=== PATIENT | female | born 1930 | race Caucasian/White ===

== ENCOUNTER 2016-07-08 20:02 | Inpatient (IN) | payer OTHER ==
[~2016-07-08] VITALS: Ht 165.1 cm; Wt 62.0 kg
[2016-07-08] MEDS: SODIUM CHLORIDE 0.9% 1,000 ML IV SCH (21:45)
[2016-07-08] MEDS ORDERED: MORPHINE SULF INJ 2 MG/ML SYRINGE 1ML IV PRN (21:45)
[2016-07-08] MEDS ORDERED: ONDANSETRON HCL 4 MG/2 ML VIAL IV PRN (21:45)
[2016-07-08] MEDS ORDERED: NITROGLYCERIN 0.4 MG SL TAB SL PRN (21:45)
[2016-07-08] MEDS: METOPROLOL TARTRATE 25 MG TAB PO SCH (22:00)
[2016-07-08] MEDS ORDERED: GABAPENTIN 300 MG CAP PO SCH (22:00)
[2016-07-08 22:27] VITALS: BP 133/62
[2016-07-08 22:27] LABS: INR 1.07 (0.9-1.15); Partial Thromboplastin Time 28.7 sec (22.64-33.71)
[2016-07-08] MEDS: ATORVASTATIN 20 MG TAB PO SCH (23:03)
[2016-07-08] MEDS: MORPHINE SULF INJ 2 MG/ML SYRINGE 1ML IV PRN (23:03)
[2016-07-08] MEDS: ENOXAPARIN SOD 30 MG/0.3 ML SYRINGE SC SCH (23:06)
[2016-07-09 05:11] VITALS: BP 121/64
[2016-07-09 06:04] LABS: Basophils # (auto) 0.1 uL; Basophils % (auto) 0.9 % (0.0-2.0); DEFINITIVE VIEW TRANSMISSION; Eosinophils # (auto) 0.9 uL; Eosinophils % (auto) 8.7 % (0.0-7.0); Hematocrit 23.9 % (36.0-46.0); Hemoglobin 7.4 g/dL (12.2-16.2); Lymphocytes # (auto) 1.8 uL; Lymphocytes % (auto) 16.6 % (10.0-50.0); Mean Corpuscular Hemoglobin 19.3 pg (28.0-32.0); Mean Corpuscular Hgb Conc. 30.8 g/dL (32.0-36.0); Mean Corpuscular Volume 62.4 fL (80.0-100.0); Mean Platelet Volume 8.4 fL (7.4-10.4); Monocytes # (auto) 1.1 uL; Monocytes % (auto) 10.2 % (0.0-12.0); Neutrophils # (auto) 6.7 uL; Neutrophils % (auto) 63.6 % (37.0-80.0); Platelet Count (auto) 247 10^3/uL (140-450); Red Cell Distribution Width 15.1 % (11.6-16.0); White Blood Cell 10.6 10^3/uL (4.4-10.8)
[2016-07-09 06:13] LABS: INR 1.06 (0.9-1.15); Partial Thromboplastin Time 30.1 sec (22.64-33.71); Prothrombin Time 10.9 sec (9.37-12.3)
[2016-07-09 06:31] LABS: Albumin 2.7 g/dL (3.4-5.0); BUN/Creatinine Ratio 22.8; Bilirubin, Total 1.1 mg/dL (0.2-1.0); Calcium 8.3 mg/dL (8.5-10.1); Potassium 4.2 mmol/L (3.5-5.1); Total Protein 6.3 g/dL (6.4-8.2)
[2016-07-09 07:49] VITALS: BP 141/72
[2016-07-09] MEDS: METOPROLOL TARTRATE 25 MG TAB PO SCH ×2 (10:58→22:22)
[2016-07-09] MEDS: PANTOPRAZOLE SODIUM 40 MG/10 ML VIAL IV SCH (10:58)
[2016-07-09] MEDS: SODIUM CHLORIDE 0.9% 1,000 ML IV SCH ×2 (10:59→22:25)
[2016-07-09 11:49] VITALS: BP 115/62
[2016-07-09] MEDS: MORPHINE SULF INJ 2 MG/ML SYRINGE 1ML IV PRN ×3 (15:04→23:32)
[2016-07-09 16:19] VITALS: BP 91/64
[2016-07-09] MEDS ORDERED: WARFARIN SODIUM 2.5 MG TAB PO ONE (17:00)
[2016-07-09] MEDS ORDERED: WARFARIN SODIUM 2 MG TAB PO ONE (17:00)
[2016-07-09] MEDS: ENOXAPARIN SOD 30 MG/0.3 ML SYRINGE SC SCH (17:16)
[2016-07-09] MEDS: ATORVASTATIN 20 MG TAB PO SCH (22:21)
[2016-07-09 22:25] VITALS: BP 147/70
[2016-07-10 04:56] VITALS: BP 135/71
[2016-07-10] MEDS: MORPHINE SULF INJ 2 MG/ML SYRINGE 1ML IV PRN ×3 (04:58→14:36)
[2016-07-10 06:29] LABS: INR 1.09 (0.9-1.15); Partial Thromboplastin Time 28.3 sec (22.64-33.71); Prothrombin Time 11.2 sec (9.37-12.3)
[2016-07-10] MEDS: LACTULOSE 20Gm/30ML SOLN PO PRN ×2 (06:41→14:35)
[2016-07-10 08:45] VITALS: BP 144/84
[2016-07-10] MEDS: PANTOPRAZOLE SODIUM 40 MG/10 ML VIAL IV SCH (09:41)
[2016-07-10] MEDS: ENOXAPARIN SOD 30 MG/0.3 ML SYRINGE SC SCH (09:41)
[2016-07-10] MEDS: METOPROLOL TARTRATE 25 MG TAB PO SCH ×2 (09:42→22:37)
[2016-07-10 11:06] LABS: Basophils # (auto) 0 uL; Basophils % (auto) 0.5 % (0.0-2.0); DEFINITIVE VIEW TRANSMISSION; Eosinophils # (auto) 0.4 uL; Eosinophils % (auto) 3.8 % (0.0-7.0); Hemoglobin 7.1 g/dL (12.2-16.2); Lymphocytes # (auto) 1.1 uL; Lymphocytes % (auto) 11.5 % (10.0-50.0); Mean Corpuscular Hemoglobin 19.3 pg (28.0-32.0); Mean Corpuscular Volume 62.4 fL (80.0-100.0); Mean Platelet Volume 8.5 fL (7.4-10.4); Monocytes # (auto) 0.8 uL; Monocytes % (auto) 7.9 % (0.0-12.0); Neutrophils # (auto) 7.3 uL; Neutrophils % (auto) 76.3 % (37.0-80.0); Platelet Count (auto) 297 10^3/uL (140-450); Red Cell Distribution Width 14.6 % (11.6-16.0); White Blood Cell 9.6 10^3/uL (4.4-10.8)
[2016-07-10] MEDS: SODIUM CHLORIDE 0.9% 1,000 ML IV SCH (11:15)
[2016-07-10 12:52] LABS: Cholesterol 134 mg/dL (<200); HDL Cholesterol 30 mg/dL (40-59); LDL Cholesterol 86 mg/dL (<100); Triglycerides 146 mg/dL (<150)
[2016-07-10 13:00] VITALS: BP 140/73
[2016-07-10 17:43] VITALS: BP 127/84
[2016-07-10 22:08] VITALS: BP 139/89
[2016-07-10] MEDS: ATORVASTATIN 20 MG TAB PO SCH (22:36)
[2016-07-11] VITALS (10 sets, daily range): BP systolic 103–130; BP diastolic 48–61
[2016-07-11] MEDS: MORPHINE SULF INJ 2 MG/ML SYRINGE 1ML IV PRN (01:20)
[2016-07-11] MEDS: SODIUM CHLORIDE 0.9% 1,000 ML IV SCH ×2 (03:34→12:15)
[2016-07-11] MEDS: PANTOPRAZOLE SODIUM 40 MG/10 ML VIAL IV SCH (09:48)
[2016-07-11] MEDS: ENOXAPARIN SOD 30 MG/0.3 ML SYRINGE SC SCH (09:48)
[2016-07-11] MEDS: METOPROLOL TARTRATE 25 MG TAB PO SCH ×2 (09:48→22:39)
[2016-07-11] MEDS: FERROUS SULFATE 325 MG TAB PO SCH (18:03)
[2016-07-11] MEDS: ATORVASTATIN 20 MG TAB PO SCH (22:39)
[2016-07-12 04:34] VITALS: BP 139/64
[2016-07-12] MEDS: SODIUM CHLORIDE 0.9% 1,000 ML IV SCH ×2 (05:00→13:15)
[2016-07-12] MEDS: LACTULOSE 20Gm/30ML SOLN PO PRN (07:39)
[2016-07-12] MEDS: MORPHINE SULF INJ 2 MG/ML SYRINGE 1ML IV PRN (07:39)
[2016-07-12] MEDS: FERROUS SULFATE 325 MG TAB PO SCH ×2 (07:39→18:00)
[2016-07-12 09:00] VITALS: BP 120/58
[2016-07-12] MEDS: PANTOPRAZOLE SODIUM 40 MG/10 ML VIAL IV SCH (09:03)
[2016-07-12] MEDS: ENOXAPARIN SOD 30 MG/0.3 ML SYRINGE SC SCH (09:03)
[2016-07-12] MEDS: METOPROLOL TARTRATE 25 MG TAB PO SCH ×2 (09:04→22:38)
[2016-07-12 09:50] LABS: DEFINITIVE VIEW TRANSMISSION; Hematocrit 25.7 % (36.0-46.0); Mean Corpuscular Hemoglobin 20.5 pg (28.0-32.0); Mean Corpuscular Hgb Conc. 31.1 g/dL (32.0-36.0); Mean Corpuscular Volume 66.1 fL (80.0-100.0); Mean Platelet Volume 8.9 fL (7.4-10.4); Platelet Count (auto) 314 10^3/uL (140-450); Red Cell Distribution Width 18.1 % (11.6-16.0); SUSPECT VIEW TRANSMISSION; White Blood Cell 25.6 10^3/uL (4.4-10.8)
[2016-07-12 09:55] LABS: Myelocytes % 0; Promyelocytes % 0; Reactive Lymphocytes 0
[2016-07-12 10:07] LABS: Albumin 2.7 g/dL (2.9-4.4); Alpha-1-Globulin 0.3 g/dL (0.0-0.4); Gamma Globulin 0.6 g/dL (0.4-1.8); Protein Total Serum 5.6 g/dL (6.0-8.5)
[2016-07-12 10:49] LABS: Metamyelocytes % 1; Platelet Estimate Adequate
[2016-07-12 10:50] LABS: Anisocytosis Moderate; Hypochromia Moderate; Polychromasia Slight; Tear Drop Cells FEW
[2016-07-12] MEDS: cefTRIAXone 1GM/50ML D5W 50 ML IV SCH (11:07)
[2016-07-12 12:40] VITALS: BP 113/67
[2016-07-12 16:50] VITALS: BP 124/70
[2016-07-12 22:00] VITALS: BP 133/56
[2016-07-12] MEDS: ATORVASTATIN 20 MG TAB PO SCH (22:38)
[2016-07-13] VITALS (8 sets, daily range): BP systolic 113–149; BP diastolic 54–87
[2016-07-13] MEDS: SODIUM CHLORIDE 0.9% 1,000 ML IV SCH ×2 (01:45→16:32)
[2016-07-13 05:11] LABS: Basophils # (auto) 0 uL; Basophils % (auto) 0.1 % (0.0-2.0); DEFINITIVE VIEW TRANSMISSION; Eosinophils # (auto) 0.5 uL; Eosinophils % (auto) 2.4 % (0.0-7.0); Hematocrit 23.6 % (36.0-46.0); Hemoglobin 7.3 g/dL (12.2-16.2); Lymphocytes % (auto) 5.3 % (10.0-50.0); Mean Corpuscular Hemoglobin 20.4 pg (28.0-32.0); Mean Corpuscular Hgb Conc. 31.1 g/dL (32.0-36.0); Mean Corpuscular Volume 65.8 fL (80.0-100.0); Mean Platelet Volume 8.8 fL (7.4-10.4); Monocytes % (auto) 5.5 % (0.0-12.0); Neutrophils # (auto) 16.3 uL; Neutrophils % (auto) 86.7 % (37.0-80.0); Platelet Count (auto) 309 10^3/uL (140-450); Red Cell Distribution Width 17.9 % (11.6-16.0); White Blood Cell 18.8 10^3/uL (4.4-10.8)
[2016-07-13 05:34] LABS: Potassium 4.1 mmol/L (3.5-5.1)
[2016-07-13 05:41] LABS: BUN/Creatinine Ratio 24.1; Calcium 8.1 mg/dL (8.5-10.1)
[2016-07-13] MEDS: cefTRIAXone 1GM/50ML D5W 50 ML IV SCH (09:33)
[2016-07-13] MEDS: METOPROLOL TARTRATE 25 MG TAB PO SCH ×3 (09:34→23:27)
[2016-07-13] MEDS: PANTOPRAZOLE SODIUM 40 MG/10 ML VIAL IV SCH (09:34)
[2016-07-13] MEDS: FERROUS SULFATE 325 MG TAB PO SCH ×2 (09:34→18:08)
[2016-07-13] MEDS: ENOXAPARIN SOD 30 MG/0.3 ML SYRINGE SC SCH (09:34)
[2016-07-13] MEDS: ALPRAZolam 0.25 MG TAB PO PRN ×2 (09:46→18:08)
[2016-07-13 13:06] LABS: Hgb A 95.1 % (94.0-98.0); Hgb A2 4.9 % (0.7-3.1)
[2016-07-13] MEDS: ATORVASTATIN 20 MG TAB PO SCH (22:27)
[2016-07-14] MEDS: ALPRAZolam 0.25 MG TAB PO PRN ×2 (02:09→10:45)
[2016-07-14 05:07] VITALS: BP 139/94
[2016-07-14] MEDS: SODIUM CHLORIDE 0.9% 1,000 ML IV SCH ×2 (06:34→17:39)
[2016-07-14 06:51] LABS: Basophils # (auto) 0 uL; Basophils % (auto) 0.2 % (0.0-2.0); DEFINITIVE VIEW TRANSMISSION; Eosinophils # (auto) 0.6 uL; Eosinophils % (auto) 3.9 % (0.0-7.0); Hematocrit 27.8 % (36.0-46.0); Hemoglobin 8.7 g/dL (12.2-16.2); Lymphocytes # (auto) 1.3 uL; Lymphocytes % (auto) 9.1 % (10.0-50.0); Mean Corpuscular Hemoglobin 21.2 pg (28.0-32.0); Mean Corpuscular Hgb Conc. 31.3 g/dL (32.0-36.0); Mean Corpuscular Volume 67.7 fL (80.0-100.0); Mean Platelet Volume 8.9 fL (7.4-10.4); Monocytes % (auto) 7.1 % (0.0-12.0); Neutrophils # (auto) 11.2 uL; Neutrophils % (auto) 79.7 % (37.0-80.0); Platelet Count (auto) 361 10^3/uL (140-450); White Blood Cell 14.1 10^3/uL (4.4-10.8)
[2016-07-14 07:11] LABS: BUN/Creatinine Ratio 22.4; Calcium 8.3 mg/dL (8.5-10.1); Potassium 3.8 mmol/L (3.5-5.1)
[2016-07-14 08:01] LABS: Anisocytosis Moderate; Hypochromia Moderate; Microcytosis Marked; Platelet Estimate Adequate
[2016-07-14 08:02] LABS: Ovalocytes FEW; Tear Drop Cells FEW
[2016-07-14 08:03] LABS: Polychromasia Slight
[2016-07-14 08:04] LABS: Schistocytes FEW
[2016-07-14 08:53] VITALS: BP 135/96
[2016-07-14] MEDS ORDERED: DIPHENOXYLATE W/ATROPINE 2.5 MG TAB PO PRN (10:15)
[2016-07-14] MEDS: FERROUS SULFATE 325 MG TAB PO SCH ×2 (10:43→19:02)
[2016-07-14] MEDS: PANTOPRAZOLE SODIUM 40 MG/10 ML VIAL IV SCH (10:44)
[2016-07-14] MEDS: BOOST PLUS 8 ounce PO SCH ×3 (10:44→20:00)
[2016-07-14] MEDS: ENOXAPARIN SOD 30 MG/0.3 ML SYRINGE SC SCH (10:44)
[2016-07-14] MEDS: cefTRIAXone 1GM/50ML D5W 50 ML IV SCH (10:44)
[2016-07-14 17:52] VITALS: BP 128/83
[2016-07-14 22:00] VITALS: BP 132/79
[2016-07-14] MEDS: METOPROLOL TARTRATE 25 MG TAB PO SCH (22:05)
[2016-07-14] MEDS: ATORVASTATIN 20 MG TAB PO SCH (22:05)
[2016-07-15] MEDS: SODIUM CHLORIDE 0.9% 1,000 ML IV SCH ×2 (04:27→16:15)
[2016-07-15 05:00] VITALS: BP 150/100
[2016-07-15 05:57] VITALS: BP 157/80
[2016-07-15 06:00] LABS: Basophils # (auto) 0.1 uL; Basophils % (auto) 0.5 % (0.0-2.0); DEFINITIVE VIEW TRANSMISSION; Eosinophils # (auto) 0.8 uL; Eosinophils % (auto) 6.3 % (0.0-7.0); Hematocrit 27.4 % (36.0-46.0); Hemoglobin 8.5 g/dL (12.2-16.2); Lymphocytes # (auto) 1.2 uL; Mean Corpuscular Hemoglobin 20.9 pg (28.0-32.0); Mean Corpuscular Volume 67.5 fL (80.0-100.0); Mean Platelet Volume 8.3 fL (7.4-10.4); Monocytes # (auto) 1.1 uL; Monocytes % (auto) 8.8 % (0.0-12.0); Neutrophils % (auto) 74.4 % (37.0-80.0); Platelet Count (auto) 385 10^3/uL (140-450); White Blood Cell 12.2 10^3/uL (4.4-10.8)
[2016-07-15 06:15] LABS: Red Cell Distribution Width 21.5 % (11.6-16.0)
[2016-07-15] MEDS: ALPRAZolam 0.25 MG TAB PO PRN (06:49)
[2016-07-15 06:54] LABS: Anisocytosis Moderate; Hypersegmented Neutrophils Present; Hypochromia Moderate; Microcytosis Marked; Ovalocytes FEW; Platelet Estimate Adequate; Schistocytes FEW; Tear Drop Cells FEW
[2016-07-15 06:55] LABS: Polychromasia Slight
[2016-07-15 07:44] VITALS: BP 150/82
[2016-07-15] MEDS: BOOST PLUS 8 ounce PO SCH ×2 (10:00→15:00)
[2016-07-15] MEDS: FERROUS SULFATE 325 MG TAB PO SCH ×2 (10:39→18:00)
[2016-07-15] MEDS: PANTOPRAZOLE SODIUM 40 MG/10 ML VIAL IV SCH (10:40)
[2016-07-15] MEDS: MORPHINE SULF INJ 2 MG/ML SYRINGE 1ML IV PRN ×2 (10:40→15:42)
[2016-07-15] MEDS: cefTRIAXone 1GM/50ML D5W 50 ML IV SCH (10:40)
[2016-07-15] MEDS: METOPROLOL TARTRATE 25 MG TAB PO SCH (10:41)
[2016-07-15] MEDS: ENOXAPARIN SOD 30 MG/0.3 ML SYRINGE SC SCH (10:41)
[2016-07-15 16:50] VITALS: BP 171/91
[2016-07-15 17:59] VITALS: BP 171/91
[2016-07-15 19:12] VITALS: BP 101/65
== END 2016-07-15 19:39 | DRG 872 ==
LOC: TELE-EAST 20:02 → EDUNIT# 20:02
PROVIDERS: ADMIT Family Medicine; ATTEND Family Medicine
PROC: 30233N1 Transfusion of Nonautologous Red Blood Cells into Peripheral Vein, Percutaneous Approach (ICD-10-PCS; principal; 2016-07-11)
PROC: 30233N1 Transfusion of Nonautologous Red Blood Cells into Peripheral Vein, Percutaneous Approach (ICD-10-PCS; 2016-07-13)
DX: A41.9 Sepsis, unspecified organism (principal); N39.0 Urinary tract infection, site not specified; M80.051A Age-related osteoporosis with current pathological fracture, right femur, initial encounter for fracture; W01.0XXA Fall on same level from slipping, tripping and stumbling without subsequent striking against object, initial encounter; D50.9 Iron deficiency anemia, unspecified; D56.3 Thalassemia minor; I48.2 Chronic atrial fibrillation; F41.9 Anxiety disorder, unspecified; R73.9 Hyperglycemia, unspecified; E78.5 Hyperlipidemia, unspecified; I12.9 Hypertensive chronic kidney disease with stage 1 through stage 4 chronic kidney disease, or unspecified chronic kidney disease; N18.3 Chronic kidney disease, stage 3 (moderate); Y93.89 Activity, other specified; Y92.89 Other specified places as the place of occurrence of the external cause; Y99.8 Other external cause status; Z98.890 Other specified postprocedural states; Z90.711 Acquired absence of uterus with remaining cervical stump; Z98.49 Cataract extraction status, unspecified eye; Z83.2 Family history of diseases of the blood and blood-forming organs and certain disorders involving the immune mechanism
CPT/HCPCS: 36415; 71010; 80048; 80053; 80061; 82270; 82728; 83021; 83540; 83550; 84155; 84165; 85007; 85025; 85027; 85045; 85049; 85610; 85660; 85730; 86850; 86880; 86900; 86901; 86920; 87081; 87086; C9113; J0696; J2405

== ENCOUNTER → 2017-03-25 | Outpatient (CLI) | payer OTHER ==
[~2017-03-25] MED LIST: GABA-494 PO; METO25TA5 PO; SIMV10TA84 PO; WARF1TAB36 PO
[2017-03-25 11:27] LABS: Basophils # (auto) 0 uL; Basophils % (auto) 0.5 % (0.0-2.0); Eosinophils # (auto) 0.3 uL; Hematocrit 30.9 % (36.0-46.0); Hemoglobin 9.5 g/dL (12.2-16.2); Lymphocytes # (auto) 2.1 uL; Lymphocytes % (auto) 21.7 % (10.0-50.0); Mean Corpuscular Hemoglobin 19.3 pg (28.0-32.0); Mean Corpuscular Hgb Conc. 30.9 g/dL (32.0-36.0); Mean Corpuscular Volume 62.6 fL (80.0-100.0); Mean Platelet Volume 8.3 fL (6.9-10.8); Monocytes # (auto) 0.9 uL; Monocytes % (auto) 9.4 % (0.0-12.0); Neutrophils # (auto) 6.2 uL; Neutrophils % (auto) 65.4 % (37.0-80.0); Platelet Count (auto) 254 10^3/uL (140-450); Red Cell Distribution Width 15.9 % (11.8-14.3); White Blood Cell 9.5 10^3/uL (4.4-10.8)
[2017-03-25 11:50] LABS: Albumin 4.3 g/dL (3.4-5.0); BUN/Creatinine Ratio 18.7; Bilirubin, Total 1.1 mg/dL (0.2-1.0); Calcium 9.8 mg/dL (8.5-10.1); Potassium 4.5 mmol/L (3.5-5.1); Total Protein 7.9 g/dL (6.4-8.2)
[2017-03-25 12:18] LABS: Urine Bilirubin Negative (Negative); Urine Blood Negative /uL (Negative); Urine Color Yellow (Yellow); Urine Glucose Normal (Normal); Urine Hyaline Cast FEW /lpf (0 - 2); Urine Ketone Negative (Negative); Urine Mucus FEW (None Seen); Urine Nitrite Negative (Negative); Urine RBC 2 /hpf (0 - 4); Urine Squamous Epithelial Cell FEW /hpf (<5); Urine Urobilinogen Normal (Negative)
== END | disposition home or self-care (01) ==
LOC: LAB 10:13
PROVIDERS: ATTEND Internal Medicine
DX: E11.9 Type 2 diabetes mellitus without complications (principal); E55.9 Vitamin D deficiency, unspecified; I11.0 Hypertensive heart disease with heart failure; I15.9 Secondary hypertension, unspecified; J44.9 Chronic obstructive pulmonary disease, unspecified
CPT/HCPCS: 36415; 80053; 81001; 82306; 83036; 84443; 85025

== ENCOUNTER 2017-08-12 08:20 | Emergency (ER) | payer OTHER ==
[~2017-08-12] VITALS: Ht 165.1 cm; Wt 56.7 kg
[~2017-08-12 08:20] MED LIST changes: +ATOR20TA50 PO; -GABA-494 PO; +GABA100C9 PO; +WARF1TAB PO
[2017-08-12 09:15] LABS: Eosinophils # (auto) 0.1 uL; Lymphocytes # (auto) 1.5 uL; Monocytes # (auto) 0.8 uL
[2017-08-12 09:19] LABS: Basophils # (auto) 0 uL; Basophils % (auto) 0.4 % (0.0-2.0); Eosinophils % (auto) 1.2 % (0.0-7.0); Hematocrit 33.1 % (36.0-46.0); Hemoglobin 10.3 g/dL (12.2-16.2); Lymphocytes % (auto) 15.2 % (10.0-50.0); Mean Corpuscular Hemoglobin 19.7 pg (28.0-32.0); Mean Corpuscular Hgb Conc. 31.2 g/dL (32.0-36.0); Mean Corpuscular Volume 63.1 fL (80.0-100.0); Monocytes % (auto) 8.3 % (0.0-12.0); Neutrophils # (auto) 7.6 uL; Neutrophils % (auto) 74.9 % (37.0-80.0); Nucleated Red Blood Cells % 0.1 %; Platelet Count (auto) 271 10^3/uL (140-450); Red Blood Cells 5.25 10^6/uL (4.0-5.20); Red Cell Distribution Width 15.4 % (11.8-14.3); White Blood Cell 10.1 10^3/uL (4.4-10.8)
[2017-08-12 09:43] LABS: Alanine Aminotransferase 21 U/L (13-56); Albumin 4.1 g/dL (3.4-5.0); Anion Gap 8 (5-15); Aspartate Aminotransferase 17 U/L (15-37); BUN/Creatinine Ratio 17.6; Blood Urea Nitrogen 28 mg/dL (7-18); Calcium 9.5 mg/dL (8.5-10.1); Carbon Dioxide 27 mmol/L (21-32); Chloride 103 mmol/L (98-107); GFR African American 39 mL/min; GFR Non-African American 32 mL/min; Glucose 124 mg/dL (74-106); Magnesium 2.4 mg/dL (1.6-2.6); Potassium 4.3 mmol/L (3.5-5.1); Sodium 138 mmol/L (136-145)
[2017-08-12] MEDS ORDERED: SODIUM CHLORIDE 0.9% 1,000 ML IV ONE (09:46)
[2017-08-12 09:47] LABS: Alkaline Phosphatase 50 U/L (45-117); Bilirubin, Total 1.4 mg/dL (0.2-1.0)
[2017-08-12] MEDS ORDERED: cefTRIAXone 1GM/10ml IVPUSH 10 ML IV ONE (10:45)
[2017-08-12 11:35] VITALS: BP 162/72
== END 2017-08-12 11:59 | disposition home or self-care (01) ==
LOC: ER 08:20 → MERGE 08:20 → ER 11:59
DX: R19.7 Diarrhea, unspecified (principal); J18.9 Pneumonia, unspecified organism; I48.91 Unspecified atrial fibrillation; E78.5 Hyperlipidemia, unspecified; I10 Essential (primary) hypertension; Z90.710 Acquired absence of both cervix and uterus
CPT/HCPCS: 36415; 74176; 80053; 83735; 84484; 85025; 93005; 96361; 96374

== ENCOUNTER → 2018-03-24 | Outpatient (CLI) | payer OTHER ==
[2018-03-24 10:24] LABS: Hematocrit 32.9 % (36.0-46.0); Mean Corpuscular Volume 63.1 fL (80.0-100.0)
[2018-03-24 10:27] LABS: Basophils # (auto) 0.1 uL; Basophils % (auto) 0.7 % (0.0-2.0); Eosinophils # (auto) 0.2 uL; Eosinophils % (auto) 2.2 % (0.0-7.0); Hemoglobin 10.4 g/dL (12.2-16.2); Lymphocytes # (auto) 1.3 uL; Lymphocytes % (auto) 16.8 % (10.0-50.0); Mean Corpuscular Hemoglobin 19.9 pg (28.0-32.0); Mean Corpuscular Hgb Conc. 31.5 g/dL (32.0-36.0); Monocytes # (auto) 0.6 uL; Monocytes % (auto) 7.1 % (0.0-12.0); Neutrophils # (auto) 5.7 uL; Neutrophils % (auto) 73.2 % (37.0-80.0); Nucleated Red Blood Cells % 0.1 %; Platelet Count (auto) 277 10^3/uL (140-450); Red Blood Cells 5.22 10^6/uL (4.0-5.20); White Blood Cell 7.8 10^3/uL (4.4-10.8)
[2018-03-24 10:55] LABS: Albumin 3.9 g/dL (3.4-5.0); BUN/Creatinine Ratio 18.7; Bilirubin, Total 1.3 mg/dL (0.2-1.0); Calcium 9.3 mg/dL (8.5-10.1); Potassium 4.6 mmol/L (3.5-5.1)
== END | disposition home or self-care (01) ==
LOC: LAB 09:06
PROVIDERS: ATTEND Physician Assistant
DX: I12.9 Hypertensive chronic kidney disease with stage 1 through stage 4 chronic kidney disease, or unspecified chronic kidney disease (principal); N18.3 Chronic kidney disease, stage 3 (moderate); I48.91 Unspecified atrial fibrillation; E78.00 Pure hypercholesterolemia, unspecified; I82.431 Acute embolism and thrombosis of right popliteal vein; D56.3 Thalassemia minor; D58.9 Hereditary hemolytic anemia, unspecified; Z88.0 Allergy status to penicillin; Z88.8 Allergy status to other drugs, medicaments and biological substances
CPT/HCPCS: 36415; 80053; 80061; 82607; 85025